=== PATIENT | female | born 1955 | race Caucasian/White ===

== ENCOUNTER → 2021-07-21 | Day surgery (SDC) | payer OTHER ==
[~2021-07-21] VITALS: Ht 165.1 cm; Wt 79.4 kg
[~2021-07-21] MED LIST: BLUEBERRY PO; CALCIUM/VIT D PO; COQ-10100 MG PO; HCTZ12.5 MG PO; INDERAL20 MG PO; PRESERVISION A1 EACH PO; XALATAN2.5 ML OU; [UNRECOGNIZED DRUG - OTHER] PO
[2021-07-21 09:06] LABS: HCT 47.1 % (37.0-47.0); HGB 15.7 g/dl (12.5-16.0); MCH 32.4 pg (25.0-31.0); MCHC 33.3 g/dL (32.0-36.0); MCV 97.3 fL (78.0-100.0); MPV 10.9 fL (6.0-9.5); RBC 4.84 M/uL (4.20-5.40); RDW 12.4 % (11.5-14.0); WBC 5.3 K/uL (4.0-10.5)
[2021-07-21 09:38] LABS: ALBUMIN 3.8 g/dL (3.4-5.0); BILIRUBIN - TOTAL 0.5 mg/dL (0.2-1.0); BUN/CREAT RATIO (CALC) 41.5 RATIO; CREATININE 0.53 mg/dL (0.51-0.95); GLOBULIN (CALCULATION) 3.1 g/dL; POTASSIUM 3.6 mmol/L (3.5-5.1); TOTAL PROTEIN 6.9 g/dL (6.4-8.2)
== END | disposition home or self-care (01) ==
LOC: FAS 08:30
PROVIDERS: Surgery
DX: Z12.11 Encounter for screening for malignant neoplasm of colon (principal); I10 Essential (primary) hypertension; Z80.0 Family history of malignant neoplasm of digestive organs; Z83.71 Family history of colonic polyps; Z88.5 Allergy status to narcotic agent
CPT/HCPCS: 36415; 80053; J2704; J7120

== ENCOUNTER 2021-11-20 08:05 | Emergency (ER) | payer OTHER ==
[2021-11-20 09:47] LABS: BASOPHIL 0.6 % (0-2); EOSINOPHIL 1.3 % (0-7); HCT 48.4 % (37.0-47.0); HGB 16.3 g/dl (12.5-16.0); LYMPHOCYTE 34.2 % (15-48); MCH 31.7 pg (25.0-31.0); MCHC 33.7 g/dL (32.0-36.0); MCV 94.2 fL (78.0-100.0); MONOCYTE 10.1 % (0-12); MPV 10.6 fL (6.0-9.5); NEUTROPHIL 53.6 % (41-80); NRBC 0; PLT 220 K/uL (150-400); RBC 5.14 M/uL (4.20-5.40); RDW 11.6 % (11.5-14.0); WBC 5.4 K/uL (4.0-10.5)
[2021-11-20 09:51] LABS: INR 1.08 (0.9-1.2); PROTHROMBIN TIME 13.4 SECONDS (11.8-13.4); PTT 29.7 SECONDS (24.4-34.7)
[2021-11-20 10:04] LABS: LACTIC ACID 2.2 mmol/L (0.4-1.9)
[2021-11-20 10:14] LABS: ACETAMINOPHEN (TYLENOL) 13.3 ug/mL (10.0-30.0); ALBUMIN 4.1 g/dL (3.4-5.0); ALKALINE PHOSHATASE 101 U/L (46-116); ALT 20 U/L (14-59); AST 25 U/L (15-37); BUN 11 mg/dL (7-18); BUN/CREAT RATIO (CALC) 17.7 RATIO; CHLORIDE 93 mmol/L (98-107); CO2 (BICARBONATE) 28 mmol/L (21-32); CREATININE 0.62 mg/dL (0.51-0.95); GLOBULIN (CALCULATION) 3.6 g/dL; GLUCOSE 132 mg/dL (74-106); MAGNESIUM 2.2 mg/dL (1.8-2.4); POTASSIUM 3.8 mmol/L (3.5-5.1); TOTAL PROTEIN 7.7 g/dL (6.4-8.2)
[2021-11-20 10:28] LABS: SALICYLATE <0.2 ug/mL (0-300)
[2021-11-20 10:48] LABS: CPK 126 U/L (26-192)
[2021-11-20 10:55] LABS: IRON 179 ug/dL (50-170); IRON % SATURATION 67.8 %SAT (20-50)
[2021-11-21 03:08] LABS: BILIRUBIN NEGATIVE (NEGATIVE); BLOOD NEGATIVE Ery/uL (NEGATIVE); CLARITY CLEAR (CLEAR); COLOR YELLOW (YELLOW); GLUCOSE (U) NORMAL (NORMAL); LEUKOCYTES NEGATIVE Leu/uL (NEGATIVE); NITRITE NEGATIVE (NEGATIVE); PROTEIN NEGATIVE (NEGATIVE); UROBILINOGEN 0.2 mg/dL (0.2-1.0)
[2021-11-21 03:12] LABS: AMPHETAMINES NEGATIVE (NEGATIVE); BARBITURATES NEGATIVE (NEGATIVE); ECSTASY (MDMA) NEGATIVE (NEGATIVE); MARIJUANA (THC) NEGATIVE (NEGATIVE); METHADONE NEGATIVE (NEGATIVE); OPIATES POSITIVE (NEGATIVE); OXYCODONE NEGATIVE (NEGATIVE)
== END 2021-11-21 08:57 | disposition other institution (70) ==
LOC: FER 08:05
PROVIDERS: Emergency Medicine
DX: T50.902A Poisoning by unspecified drugs, medicaments and biological substances, intentional self-harm, initial encounter (principal); F23 Brief psychotic disorder; I10 Essential (primary) hypertension; Z88.5 Allergy status to narcotic agent; Z91.048 Other nonmedicinal substance allergy status; Z20.822 Contact with and (suspected) exposure to COVID-19
CPT/HCPCS: 36415; 36600; 70450; 80053; 80305; 81003; 82550; 82803; 83540; 83550; 83605; 83735; 84145; 84443; 84484; 85025; 85610; 85730; 93005; G0480; J2310; J7120; U0002